=== PATIENT | female | born 1960 | race Caucasian/White ===

== ENCOUNTER 2022-09-01 15:50 | Observation (INO) | payer OTHER ==
[~2022-09-01] VITALS: Ht 170.2 cm; Wt 96.3 kg
[2022-09-01 16:27] LABS: Albumin 3.3 g/dL (3.4-5.0); Calcium 8.8 mg/dL (8.5-10.1); Magnesium 2.3 mg/dL (1.6-2.6); Potassium 3.9 mmol/L (3.5-5.1)
[2022-09-01 16:30] VITALS: PULSE 57; RESP 15; O2SAT 94
[2022-09-01 16:30] LABS: BUN/Creatinine Ratio 22.5 (10.0-20.0); Bilirubin, Total 0.4 mg/dL (0.2-1.0); Total Protein 7.2 g/dL (6.4-8.2)
[2022-09-01 16:37] LABS: Basophils # (auto) 0 10 ^3/uL (0-0.2); Basophils % (auto) 0.6 % (0.0-2.0); Eosinophils # (auto) 0.2 10 ^3/uL (0-0.8); Eosinophils % (auto) 2.5 % (0.0-7.0); Hematocrit 41.7 % (36.0-46.0); Hemoglobin 14.1 g/dL (12.2-16.2); Lymphocytes % (auto) 31.6 % (10.0-50.0); Mean Corpuscular Hemoglobin 31.1 pg (28.0-32.0); Mean Corpuscular Hgb Conc. 33.8 g/dL (32.0-36.0); Mean Corpuscular Volume 92.2 fL (80.0-100.0); Monocytes # (auto) 0.4 10 ^3/uL (0-1.3); Monocytes % (auto) 6.2 % (0.0-12.0); Neutrophils # (auto) 3.8 10 ^3/uL (1.6-8.6); Neutrophils % (auto) 59.1 % (37.0-80.0); Nucleated Red Blood Cells % 0.1 %; Red Blood Cells 4.53 10^6/uL (4.0-5.20); Red Cell Distribution Width 13.3 % (11.8-14.3); White Blood Cell 6.5 10^3/uL (4.4-10.8)
[2022-09-01 18:22] LABS: Urine Bacteria NONE SEEN /hpf (None Seen); Urine Blood Negative /uL (Negative); Urine Mucus FEW (None Seen); Urine Specific Gravity 1.031 (1.001-1.035); Urine WBC 5 /hpf (0 - 5)
[2022-09-01 20:00] VITALS: PULSE 63; RESP 16; O2SAT 93
[2022-09-01] MEDS ORDERED: SOD CHL 0.45% 1,000 ML IV ONE ×2 (20:45→22:45)
[2022-09-01 21:20] LABS: Alcohol, Urine < 3.0 mg/dL (0-10); Amphetamine Screen, Urine NEGATIVE (NEGATIVE); Barbiturate Scree,Urine NEGATIVE (NEGATIVE); Benzodiazephine Screen, Urine NEGATIVE (NEGATIVE); Cannabinoid Screen, Urine NEGATIVE (NEGATIVE); Cocaine Screen, Urine NEGATIVE (NEGATIVE); Opiate Scree,Urine NEGATIVE (NEGATIVE); Phencyclidine Screen, Urine NEGATIVE (NEGATIVE)
[2022-09-01] MEDS ORDERED: ASPirin 325 MG TAB PO ONE (22:00)
[2022-09-01] MEDS ORDERED: DexAMETHasone SOD PHOS 10MG/1ML VIAL INJ IV ONE (22:30)
[2022-09-01] MEDS ORDERED: NITROGLYCERIN 0.4 MG SL TAB SL PRN (22:30)
[2022-09-01] MEDS ORDERED: MORPHINE SULFATE INJ 2 MG/ml SYRG IV PRN (22:30)
[2022-09-02] MEDS ORDERED: ATROPINE SULF 1 MG/10ml SYR IV ONE (03:15)
[2022-09-02] MEDS: methylPREDNISolone SOD SUCC 125 MG/2 ML VL IV SCH ×3 (04:41→22:27)
[2022-09-02] MEDS ORDERED: ATROPINE SULF 0.5 MG/5ML SYR IV ONE (04:45)
[2022-09-02 05:48] LABS: Basophils # (auto) 0 10 ^3/uL (0-0.2); Basophils % (auto) 0.1 % (0.0-2.0); Eosinophils # (auto) 0 10 ^3/uL (0-0.8); Eosinophils % (auto) 0.1 % (0.0-7.0); Hematocrit 39.3 % (36.0-46.0); Hemoglobin 13.5 g/dL (12.2-16.2); Lymphocytes # (auto) 0.7 10 ^3/uL (0.4-5.4); Lymphocytes % (auto) 11.5 % (10.0-50.0); Mean Corpuscular Hemoglobin 31.9 pg (28.0-32.0); Mean Corpuscular Hgb Conc. 34.3 g/dL (32.0-36.0); Monocytes # (auto) 0.1 10 ^3/uL (0-1.3); Monocytes % (auto) 0.9 % (0.0-12.0); Neutrophils # (auto) 5.1 10 ^3/uL (1.6-8.6); Neutrophils % (auto) 87.4 % (37.0-80.0); Nucleated Red Blood Cells % 0.1 %; Red Blood Cells 4.23 10^6/uL (4.0-5.20); Red Cell Distribution Width 13.5 % (11.8-14.3); White Blood Cell 5.8 10^3/uL (4.4-10.8)
[2022-09-02 06:02] LABS: Albumin 3.2 g/dL (3.4-5.0); Calcium 8.7 mg/dL (8.5-10.1); Potassium 4.3 mmol/L (3.5-5.1)
[2022-09-02 06:05] LABS: BUN/Creatinine Ratio 22.2 (10.0-20.0); Bilirubin, Total 0.2 mg/dL (0.2-1.0); Total Protein 6.9 g/dL (6.4-8.2)
[2022-09-02] MEDS ORDERED: SOD CHL 0.45% 1,000 ML IV ONE (06:15)
[2022-09-02 07:51] LABS: Urine WBC None Seen /hpf (0 - 5)
[2022-09-02 08:17] VITALS: PULSE 45; RESP 18; O2SAT 95
[2022-09-02 08:23] LABS: Urine Bacteria FEW /hpf (None Seen); Urine Blood Negative /uL (Negative); Urine Specific Gravity 1.016 (1.001-1.035)
[2022-09-02] MEDS ORDERED: SODIUM CHLORIDE 0.9% 1,000 ML IV ONE ×2 (09:30)
[2022-09-02] MEDS: SODIUM CHLORIDE 0.9% 1,000 ML IV SCH ×2 (10:00→20:43)
[2022-09-02] MEDS: levoFLOXacin 500MG 100 ML IV SCH (11:25)
[2022-09-02] MEDS: MIDODRINE HCL 10 MG TAB PO SCH (15:38)
[2022-09-02] MEDS ORDERED: MIDODRINE HCL 10 MG TAB PO SCH (18:00)
[2022-09-02] MEDS ORDERED: NOREPINEPHRINE 8 MG/250ML KIT 250 ML IV SCH (18:00)
[2022-09-02 19:30] VITALS: PULSE 54; RESP 18; TEMP 98.8; O2SAT 93
[2022-09-03] MEDS: MIDODRINE HCL 10 MG TAB PO SCH (06:27)
[2022-09-03] MEDS: methylPREDNISolone SOD SUCC 125 MG/2 ML VL IV SCH (06:27)
[2022-09-03] MEDS: SODIUM CHLORIDE 0.9% 1,000 ML IV SCH ×2 (06:31→16:56)
[2022-09-03 08:00] VITALS: PULSE 43; RESP 18; O2SAT 93
[2022-09-03] MEDS: levoFLOXacin 500MG 100 ML IV SCH (10:05)
[2022-09-03] MEDS ORDERED: MIDO10TA3 PO (10:33)
[2022-09-03 16:58] VITALS: BP 129/77; PULSE 48; RESP 20; O2SAT 95
== END 2022-09-03 17:03 | disposition home or self-care (01) ==
LOC: ER 15:50 → TELE 22:38 → UNDODEPER 09-03 16:37 → TELE 09-03 17:03
PROVIDERS: ADMIT Internal Medicine; ATTEND Internal Medicine
DX: R55 Syncope and collapse (principal); S09.90XA Unspecified injury of head, initial encounter; R07.89 Other chest pain; E27.1 Primary adrenocortical insufficiency; N39.0 Urinary tract infection, site not specified; I48.91 Unspecified atrial fibrillation; R00.2 Palpitations; E78.5 Hyperlipidemia, unspecified; I49.8 Other specified cardiac arrhythmias; I51.7 Cardiomegaly; W19.XXXA Unspecified fall, initial encounter; Y93.89 Activity, other specified; Y92.89 Other specified places as the place of occurrence of the external cause; Y99.8 Other external cause status
CPT/HCPCS: 36415; 70450; 71045; 72125; 73562; 80053; 80307; 81001; 82550; 82962; 83605; 83735; 83880; 84443; 84484; 85025; 85379; 93005; 93306; 96361; 96365; 96366; 96367; 96375; 96376; 99285; G0378; J1100; J1956; J2930

== ENCOUNTER 2022-10-25 11:39 | Inpatient (IN) | payer MEDICARE, MEDICAID ==
[~2022-10-25] VITALS: Ht 170.2 cm; Wt 96.0 kg
[2022-10-25] VITALS (38 sets, daily range): BP systolic 84–105; BP diastolic 44–63; PULSE 46–74; RESP 12–24; TEMP 97.6–97.7; O2SAT 94–99
[~2022-10-25 11:39] MED LIST: MIDO10TA3 PO
[2022-10-25] MEDS ORDERED: DexAMETHasone SOD PHOS 10MG/1ML VIAL INJ IV ONE (11:45)
[2022-10-25] MEDS ORDERED: EPINEPHrine HCL 1 MG/1 ML AMP SC ONE (11:45)
[2022-10-25] MEDS ORDERED: DexAMETHasone SOD PHOS 4 MG/1ML SDV INJ ONE ×2 (11:53→11:57)
[2022-10-25] MEDS ORDERED: ETOMIDATE (2MG/ML) 20ML VIAL IV ONE ×2 (11:55→12:00)
[2022-10-25] MEDS ORDERED: MIDAZOLAM DRIP 50 mg/50mL 50 ML IV ONE (11:55)
[2022-10-25] MEDS ORDERED: MIDAZOLAM HCL 5 MG/ML-1ML VIAL ONE (11:55)
[2022-10-25] MEDS ORDERED: SUCCINYLCHOLINE CHLORIDE 20 MG/ML 10ML VIAL IV ONE ×2 (11:56→12:00)
[2022-10-25] MEDS ORDERED: MIDAZOLAM DRIP 50 mg/50mL 50 ML IV SCH (12:00)
[2022-10-25] MEDS ORDERED: MIDAZOLAM HCL 5 MG/ML-1ML VIAL IV ONE (12:00)
[2022-10-25] MEDS: MIDAZOLAM DRIP 50 mg/50mL 50 ML IV SCH ×3 (12:01→23:32)
[2022-10-25] MEDS ORDERED: fentaNYL Drip 2500mCg/250mlNS 250 ML IV ONE (12:20)
[2022-10-25] MEDS: fentaNYL Drip 2500mCg/250mlNS 250 ML IV SCH (12:25)
[2022-10-25 12:33] LABS: Basophils # (auto) 0.1 10 ^3/uL (0-0.2); Basophils % (auto) 0.5 % (0.0-2.0); Eosinophils # (auto) 0.1 10 ^3/uL (0-0.8); Eosinophils % (auto) 1.5 % (0.0-7.0); Hematocrit 42.2 % (36.0-46.0); Hemoglobin 14.2 g/dL (12.2-16.2); Lymphocytes # (auto) 3.1 10 ^3/uL (0.4-5.4); Lymphocytes % (auto) 30.4 % (10.0-50.0); Mean Corpuscular Hemoglobin 31.4 pg (28.0-32.0); Mean Corpuscular Hgb Conc. 33.7 g/dL (32.0-36.0); Mean Corpuscular Volume 93.3 fL (80.0-100.0); Monocytes # (auto) 0.6 10 ^3/uL (0-1.3); Monocytes % (auto) 6.3 % (0.0-12.0); Neutrophils # (auto) 6.2 10 ^3/uL (1.6-8.6); Neutrophils % (auto) 61.3 % (37.0-80.0); Nucleated Red Blood Cells % 0.1 %; Red Blood Cells 4.52 10^6/uL (4.0-5.20); Red Cell Distribution Width 13.6 % (11.8-14.3); White Blood Cell 10.1 10^3/uL (4.4-10.8)
[2022-10-25 12:39] LABS: Albumin 3.5 g/dL (3.4-5.0); Calcium 8.7 mg/dL (8.5-10.1); Potassium 4.1 mmol/L (3.5-5.1)
[2022-10-25 12:47] LABS: Bilirubin, Total 0.3 mg/dL (0.2-1.0); Total Protein 7.1 g/dL (6.4-8.2)
[2022-10-25 12:58] LABS: Partial Thromboplastin Time 25.7 SEC (24.5-34.5); Prothrombin Time 10.5 sec (9.3-11.8)
[2022-10-25] MEDS ORDERED: IOHEXOL 350 MG/ML 100ML IJ ONE (13:06)
[2022-10-25 13:40] LABS: Base Excess -3.9 mmol/L (-2.0-2.0)
[2022-10-25] MEDS ORDERED: NITROGLYCERIN 0.4 MG SL TAB SL PRN (15:00)
[2022-10-25] MEDS ORDERED: PANTOPRAZOLE 40 MG/10 ML VIAL INJ IV ONE (15:15)
[2022-10-25] MEDS: SODIUM CHLORIDE 0.9% 1,000 ML IV SCH (15:19)
[2022-10-25 16:16] LABS: Cholesterol 255 mg/dL (< 200); HDL Cholesterol 58 mg/dL (40-59); LDL Cholesterol 164 mg/dL (< 100); Triglycerides 99 mg/dL (< 150)
[2022-10-25] MEDS: NOREPINEPHRINE 8 MG/250ML KIT 250 ML IV SCH (16:51)
[2022-10-25] MEDS: HYDROCORTISONE SOD SUCC 100 MG/2ML INJ VIAL IV SCH ×2 (18:45→23:32)
[2022-10-25] MEDS: IPRATROPIUM BROM 0.5 MG/2.5ML INH SOL NEB SCH ×2 (19:00→22:24)
[2022-10-25] MEDS: ALBUTEROL SULF 2.5 MG/0.5ML(0.5%) NEB SOLN NEB SCH ×2 (19:00→22:24)
[2022-10-26] VITALS (111 sets, daily range): BP systolic 87–118; BP diastolic 46–65; PULSE 61–104; RESP 12–21; TEMP 97.8–98.5; O2SAT 92–98
[2022-10-26] MEDS: ALBUTEROL SULF 2.5 MG/0.5ML(0.5%) NEB SOLN NEB SCH ×6 (02:26→22:19)
[2022-10-26] MEDS: IPRATROPIUM BROM 0.5 MG/2.5ML INH SOL NEB SCH ×6 (02:26→22:20)
[2022-10-26 04:15] LABS: Basophils # (auto) 0 10 ^3/uL (0-0.2); Basophils % (auto) 0.2 % (0.0-2.0); Eosinophils # (auto) 0 10 ^3/uL (0-0.8); Hematocrit 41.6 % (36.0-46.0); Hemoglobin 13.5 g/dL (12.2-16.2); Lymphocytes # (auto) 0.7 10 ^3/uL (0.4-5.4); Lymphocytes % (auto) 4.6 % (10.0-50.0); Mean Corpuscular Hemoglobin 31.4 pg (28.0-32.0); Mean Corpuscular Hgb Conc. 32.6 g/dL (32.0-36.0); Mean Corpuscular Volume 96.4 fL (80.0-100.0); Monocytes # (auto) 0.2 10 ^3/uL (0-1.3); Monocytes % (auto) 1.3 % (0.0-12.0); Neutrophils # (auto) 13.8 10 ^3/uL (1.6-8.6); Neutrophils % (auto) 93.9 % (37.0-80.0); Red Blood Cells 4.32 10^6/uL (4.0-5.20); Red Cell Distribution Width 14.4 % (11.8-14.3); White Blood Cell 14.7 10^3/uL (4.4-10.8)
[2022-10-26 04:26] LABS: Urine Bacteria NONE SEEN /hpf (None Seen); Urine Blood Negative /uL (Negative); Urine Clarity Clear (Clear); Urine Color Yellow (Yellow); Urine Hyaline Cast FEW /lpf (0 - 2); Urine Mucus FEW (None Seen); Urine Protein, UAD TRACE (Negative); Urine Urobilinogen Normal (Negative); Urine WBC 2 /hpf (0 - 5); Urine pH 5.5 (5.0-8.0)
[2022-10-26] MEDS: MIDAZOLAM DRIP 50 mg/50mL 50 ML IV SCH ×5 (04:26→22:53)
[2022-10-26] MEDS: SODIUM CHLORIDE 0.9% 1,000 ML IV SCH ×2 (04:27→18:38)
[2022-10-26 04:31] LABS: Potassium 4.4 mmol/L (3.5-5.1)
[2022-10-26 04:38] LABS: BUN/Creatinine Ratio 16.5 (10.0-20.0); Bilirubin, Total 0.2 mg/dL (0.2-1.0); Calcium 8.6 mg/dL (8.5-10.1)
[2022-10-26] MEDS: HYDROCORTISONE SOD SUCC 100 MG/2ML INJ VIAL IV SCH ×3 (06:06→18:38)
[2022-10-26 06:09] LABS: Base Excess -9.9 mmol/L (-2.0-2.0)
[2022-10-26] MEDS: fentaNYL Drip 2500mCg/250mlNS 250 ML IV SCH ×2 (06:12→23:28)
[2022-10-26] MEDS ORDERED: SODIUM BICARBONATE 8.4 % INJ 50ML VIAL IV ONE (06:45)
[2022-10-26] MEDS ORDERED: SODIUM BICARBONATE 8.4% INJ 50ML SYRINGE IV ONE (07:30)
[2022-10-26] MEDS: PANTOPRAZOLE 40 MG/10 ML VIAL INJ IV SCH (09:19)
[2022-10-26] MEDS ORDERED: ATO40T PO (11:37)
[2022-10-26] MEDS ORDERED: TRAZ-181 PO (11:37)
[2022-10-26] MEDS ORDERED: PROM12.57 PO (11:37)
[2022-10-26] MEDS: NOREPINEPHRINE 8 MG/250ML KIT 250 ML IV SCH (15:00)
[2022-10-26] MEDS ORDERED: MIDODRINE HCL 10 MG TAB PO ONE (16:00)
[2022-10-26 16:28] LABS: Base Excess -7.5 mmol/L (-2.0-2.0)
[2022-10-26] MEDS ORDERED: NITROGLYCERIN 2% OINT 1GM PKG TD ONE (19:00)
[2022-10-27] VITALS (110 sets, daily range): BP systolic 89–189; BP diastolic 48–99; PULSE 47–98; RESP 19–26; TEMP 97.6–98.6; O2SAT 92–99
[2022-10-27] MEDS: HYDROCORTISONE SOD SUCC 100 MG/2ML INJ VIAL IV SCH ×4 (00:02→17:57)
[2022-10-27] MEDS: IPRATROPIUM BROM 0.5 MG/2.5ML INH SOL NEB SCH ×7 (02:21→22:02)
[2022-10-27] MEDS: ALBUTEROL SULF 2.5 MG/0.5ML(0.5%) NEB SOLN NEB SCH ×7 (02:21→22:02)
[2022-10-27] MEDS: MIDAZOLAM DRIP 50 mg/50mL 50 ML IV SCH ×3 (04:06→15:33)
[2022-10-27 05:04] LABS: Basophils # (auto) 0 10 ^3/uL (0-0.2); Basophils % (auto) 0.1 % (0.0-2.0); Eosinophils # (auto) 0 10 ^3/uL (0-0.8); Hematocrit 31.3 % (36.0-46.0); Hemoglobin 10.6 g/dL (12.2-16.2); Lymphocytes # (auto) 0.9 10 ^3/uL (0.4-5.4); Lymphocytes % (auto) 5.6 % (10.0-50.0); Mean Corpuscular Hemoglobin 31.6 pg (28.0-32.0); Mean Corpuscular Hgb Conc. 33.9 g/dL (32.0-36.0); Monocytes # (auto) 0.8 10 ^3/uL (0-1.3); Monocytes % (auto) 5.1 % (0.0-12.0); Neutrophils # (auto) 13.8 10 ^3/uL (1.6-8.6); Neutrophils % (auto) 89.2 % (37.0-80.0); Nucleated Red Blood Cells % 0.1 %; Red Blood Cells 3.36 10^6/uL (4.0-5.20); Red Cell Distribution Width 13.7 % (11.8-14.3); White Blood Cell 15.5 10^3/uL (4.4-10.8)
[2022-10-27 05:24] LABS: Calcium 8.2 mg/dL (8.5-10.1); Potassium 4.5 mmol/L (3.5-5.1)
[2022-10-27 05:31] LABS: Albumin 2.8 g/dL (3.4-5.0); BUN/Creatinine Ratio 31.2 (10.0-20.0); Bilirubin, Total 0.2 mg/dL (0.2-1.0); Total Protein 6.1 g/dL (6.4-8.2)
[2022-10-27] MEDS: MIDODRINE HCL 10 MG TAB PO SCH ×3 (05:58→17:57)
[2022-10-27] MEDS ORDERED: dilTIAZem 25 MG/5 ML VIAL IV ONE (06:45)
[2022-10-27 07:21] LABS: Base Excess -2.5 mmol/L (-2.0-2.0)
[2022-10-27] MEDS: SODIUM CHLORIDE 0.9% 1,000 ML IV SCH (09:15)
[2022-10-27] MEDS: PANTOPRAZOLE 40 MG/10 ML VIAL INJ IV SCH (09:42)
[2022-10-27] MEDS: ENOXAPARIN SOD 40 MG/0.4 ML SYRINGE SC SCH (09:42)
[2022-10-27] MEDS: NOREPINEPHRINE 8 MG/250ML KIT 250 ML IV SCH (15:00)
[2022-10-28] VITALS (113 sets, daily range): BP systolic 124–170; BP diastolic 65–104; PULSE 47–92; RESP 8–30; TEMP 97.2–98.9; O2SAT 86–100
[2022-10-28] MEDS: HYDROCORTISONE SOD SUCC 100 MG/2ML INJ VIAL IV SCH ×4 (00:52→22:33)
[2022-10-28] MEDS: SODIUM CHLORIDE 0.9% 1,000 ML IV SCH ×2 (00:52→09:40)
[2022-10-28] MEDS: IPRATROPIUM BROM 0.5 MG/2.5ML INH SOL NEB SCH ×5 (02:32→22:26)
[2022-10-28] MEDS: ALBUTEROL SULF 2.5 MG/0.5ML(0.5%) NEB SOLN NEB SCH ×5 (02:32→22:26)
[2022-10-28] MEDS: fentaNYL Drip 2500mCg/250mlNS 250 ML IV SCH (03:08)
[2022-10-28 04:09] LABS: Basophils # (auto) 0 10 ^3/uL (0-0.2); Basophils % (auto) 0.1 % (0.0-2.0); Eosinophils # (auto) 0 10 ^3/uL (0-0.8); Hematocrit 34.6 % (36.0-46.0); Hemoglobin 11.7 g/dL (12.2-16.2); Lymphocytes % (auto) 8.6 % (10.0-50.0); Mean Corpuscular Hemoglobin 31.7 pg (28.0-32.0); Mean Corpuscular Hgb Conc. 33.8 g/dL (32.0-36.0); Mean Corpuscular Volume 93.6 fL (80.0-100.0); Monocytes # (auto) 0.6 10 ^3/uL (0-1.3); Monocytes % (auto) 5.2 % (0.0-12.0); Neutrophils # (auto) 10.2 10 ^3/uL (1.6-8.6); Neutrophils % (auto) 86.1 % (37.0-80.0); Red Cell Distribution Width 14.2 % (11.8-14.3); White Blood Cell 11.8 10^3/uL (4.4-10.8)
[2022-10-28 04:29] LABS: Calcium 8.5 mg/dL (8.5-10.1); Potassium 3.8 mmol/L (3.5-5.1)
[2022-10-28 04:32] LABS: BUN/Creatinine Ratio 29.2 (10.0-20.0)
[2022-10-28] MEDS: MIDODRINE HCL 10 MG TAB PO SCH ×3 (05:48→17:43)
[2022-10-28] MEDS: PANTOPRAZOLE 40 MG/10 ML VIAL INJ IV SCH (09:49)
[2022-10-28] MEDS: ENOXAPARIN SOD 40 MG/0.4 ML SYRINGE SC SCH (09:49)
[2022-10-28 09:59] LABS: Base Excess 1.1 mmol/L (-2.0-2.0)
[2022-10-28] MEDS ORDERED: FUROSEMIDE 20 MG/2 ML VIAL ONE (10:39)
[2022-10-28] MEDS ORDERED: FUROSEMIDE 20 MG/2 ML VIAL IV ONE (10:45)
[2022-10-28] MEDS ORDERED: HYDR5TAB PO (12:08)
[2022-10-28] MEDS ORDERED: DOCU-94 PO (12:08)
[2022-10-28] MEDS ORDERED: FAMO-12 PO (12:08)
[2022-10-28] MEDS: MORPHINE SULFATE INJ 2 MG/ml SYRG IV PRN (20:40)
[2022-10-29] VITALS (35 sets, daily range): BP systolic 113–155; BP diastolic 56–90; PULSE 47–87; RESP 14–25; TEMP 98.2–98.6; O2SAT 91–100
[2022-10-29] MEDS: IPRATROPIUM BROM 0.5 MG/2.5ML INH SOL NEB SCH ×6 (02:52→22:02)
[2022-10-29] MEDS: ALBUTEROL SULF 2.5 MG/0.5ML(0.5%) NEB SOLN NEB SCH ×6 (02:53→22:02)
[2022-10-29 04:53] LABS: Basophils # (auto) 0 10 ^3/uL (0-0.2); Basophils % (auto) 0.3 % (0.0-2.0); Eosinophils # (auto) 0 10 ^3/uL (0-0.8); Eosinophils % (auto) 0.1 % (0.0-7.0); Hemoglobin 10.7 g/dL (12.2-16.2); Lymphocytes # (auto) 1.5 10 ^3/uL (0.4-5.4); Lymphocytes % (auto) 16.7 % (10.0-50.0); Mean Corpuscular Hemoglobin 31.9 pg (28.0-32.0); Mean Corpuscular Hgb Conc. 34.7 g/dL (32.0-36.0); Mean Corpuscular Volume 91.9 fL (80.0-100.0); Monocytes # (auto) 0.5 10 ^3/uL (0-1.3); Monocytes % (auto) 5.1 % (0.0-12.0); Neutrophils # (auto) 6.9 10 ^3/uL (1.6-8.6); Neutrophils % (auto) 77.8 % (37.0-80.0); Red Blood Cells 3.37 10^6/uL (4.0-5.20); White Blood Cell 8.9 10^3/uL (4.4-10.8)
[2022-10-29 05:08] LABS: Calcium 8.5 mg/dL (8.5-10.1); Potassium 3.2 mmol/L (3.5-5.1)
[2022-10-29] MEDS: MIDODRINE HCL 10 MG TAB PO SCH ×3 (05:30→17:30)
[2022-10-29] MEDS: HYDROCORTISONE SOD SUCC 100 MG/2ML INJ VIAL IV SCH ×3 (05:30→21:31)
[2022-10-29] MEDS: ENOXAPARIN SOD 40 MG/0.4 ML SYRINGE SC SCH (10:18)
[2022-10-29] MEDS: PANTOPRAZOLE 40 MG/10 ML VIAL INJ IV SCH (10:18)
[2022-10-29] MEDS: MIDAZOLAM DRIP 50 mg/50mL 50 ML IV SCH (12:15)
[2022-10-29] MEDS: fentaNYL Drip 2500mCg/250mlNS 250 ML IV SCH (12:30)
[2022-10-30] VITALS (64 sets, daily range): BP systolic 76–165; BP diastolic 41–109; PULSE 45–157; RESP 12–29; TEMP 98.3–98.6; O2SAT 90–98
[2022-10-30] MEDS: LORazepam 2MG/ML-1ML VIAL IV PRN (00:38)
[2022-10-30] MEDS ORDERED: dilTIAZem 25 MG/5 ML VIAL IV ONE ×2 (00:45)
[2022-10-30] MEDS ORDERED: POTASSIUM CHL 20MEQ/100ML 100 ML IV ONE ×3 (00:45→02:45)
[2022-10-30] MEDS ORDERED: dilTIAZem 125mg/125ml BAG KIT 125 ML IV SCH (01:00)
[2022-10-30 01:16] LABS: BUN/Creatinine Ratio 26.2 (10.0-20.0); Calcium 8.5 mg/dL (8.5-10.1); Magnesium 2.5 mg/dL (1.6-2.6); Potassium 3.1 mmol/L (3.5-5.1)
[2022-10-30] MEDS: ALBUTEROL SULF 2.5 MG/0.5ML(0.5%) NEB SOLN NEB SCH ×6 (01:57→22:51)
[2022-10-30] MEDS: IPRATROPIUM BROM 0.5 MG/2.5ML INH SOL NEB SCH ×6 (01:57→22:51)
[2022-10-30] MEDS ORDERED: AMIODARONE BOLUS KIT 100 ML IV ONE (03:00)
[2022-10-30] MEDS ORDERED: AMIODARONE 450mg/250ml AE 250 ML IV SCH ×2 (03:15→09:15)
[2022-10-30] MEDS: HYDROCORTISONE SOD SUCC 100 MG/2ML INJ VIAL IV SCH ×3 (05:48→21:03)
[2022-10-30] MEDS: MIDODRINE HCL 10 MG TAB PO SCH ×3 (05:48→17:41)
[2022-10-30] MEDS: PANTOPRAZOLE 40 MG/10 ML VIAL INJ IV SCH (09:09)
[2022-10-30] MEDS: ENOXAPARIN SOD 40 MG/0.4 ML SYRINGE SC SCH (09:10)
[2022-10-30] MEDS: ASPirin 81 mg TAB PO SCH (09:10)
[2022-10-30] MEDS ORDERED: FUROSEMIDE 20 MG/2 ML VIAL IV ONE (12:15)
[2022-10-30] MEDS ORDERED: POTASSIUM CHL 20 Meq TABLET PO ONE (12:15)
[2022-10-30] MEDS ORDERED: ONDANSETRON HCL 4 MG/2 ML VIAL IV PRN (14:00)
[2022-10-30] MEDS ORDERED: LACTULOSE 20Gm/30ML SOLN PO PRN (15:00)
[2022-10-30] MEDS ORDERED: POTASSIUM EFFERVESENT TAB 25 MEQ PO ONE (15:15)
[2022-10-30] MEDS: ATORVASTATIN 20 MG TAB PO SCH (21:03)
[2022-10-30] MEDS: APIXABAN 5 MG TAB PO SCH (21:03)
[2022-10-30] MEDS ORDERED: DOCUSATE ORAL LIQUID 100 MG/10 ML UD PO PRN (22:00)
[2022-10-31] VITALS (47 sets, daily range): BP systolic 80–160; BP diastolic 52–80; PULSE 40–78; RESP 11–23; TEMP 97.9–98.1; O2SAT 92–100
[2022-10-31] MEDS: IPRATROPIUM BROM 0.5 MG/2.5ML INH SOL NEB SCH ×6 (02:31→22:20)
[2022-10-31] MEDS: ALBUTEROL SULF 2.5 MG/0.5ML(0.5%) NEB SOLN NEB SCH ×6 (02:32→22:20)
[2022-10-31 04:24] LABS: Potassium 3.9 mmol/L (3.5-5.1)
[2022-10-31 04:31] LABS: BUN/Creatinine Ratio 34.3 (10.0-20.0); Calcium 8.4 mg/dL (8.5-10.1)
[2022-10-31] MEDS: MIDODRINE HCL 10 MG TAB PO SCH ×3 (06:00→17:31)
[2022-10-31] MEDS: HYDROCORTISONE SOD SUCC 100 MG/2ML INJ VIAL IV SCH (06:07)
[2022-10-31] MEDS: ASPirin 81 mg TAB PO SCH (10:02)
[2022-10-31] MEDS: APIXABAN 5 MG TAB PO SCH ×2 (10:02→21:57)
[2022-10-31] MEDS: PANTOPRAZOLE 40 MG/10 ML VIAL INJ IV SCH (10:03)
[2022-10-31] MEDS: HYDROCORTISONE 10 MG TAB PO SCH (17:30)
[2022-10-31] MEDS: LORazepam 2MG/ML-1ML VIAL IV PRN (21:57)
[2022-10-31] MEDS: ATORVASTATIN 20 MG TAB PO SCH (21:58)
[2022-11-01] VITALS (83 sets, daily range): BP systolic 83–173; BP diastolic 50–88; PULSE 44–148; RESP 8–31; TEMP 97.9–98.8; O2SAT 88–100
[2022-11-01] MEDS: ALBUTEROL SULF 2.5 MG/0.5ML(0.5%) NEB SOLN NEB SCH ×6 (01:51→22:31)
[2022-11-01] MEDS: IPRATROPIUM BROM 0.5 MG/2.5ML INH SOL NEB SCH ×6 (01:51→22:31)
[2022-11-01] MEDS: MORPHINE SULFATE INJ 2 MG/ml SYRG IV PRN ×2 (02:36→03:01)
[2022-11-01] MEDS ORDERED: DIGOXIN (250MCG/ML) 2 ML AMPULE ONE (02:57)
[2022-11-01] MEDS ORDERED: DIGOXIN (250MCG/ML) 2 ML AMPULE IV ONE ×2 (03:00→03:31)
[2022-11-01] MEDS: LORazepam 2MG/ML-1ML VIAL IV PRN (03:39)
[2022-11-01 04:43] LABS: Basophils # (auto) 0 10 ^3/uL (0-0.2); Basophils % (auto) 0.2 % (0.0-2.0); Eosinophils # (auto) 0.2 10 ^3/uL (0-0.8); Eosinophils % (auto) 2.3 % (0.0-7.0); Lymphocytes # (auto) 2.4 10 ^3/uL (0.4-5.4); Lymphocytes % (auto) 30.2 % (10.0-50.0); Mean Corpuscular Hemoglobin 31.6 pg (28.0-32.0); Mean Corpuscular Hgb Conc. 34.2 g/dL (32.0-36.0); Mean Corpuscular Volume 92.5 fL (80.0-100.0); Monocytes # (auto) 0.6 10 ^3/uL (0-1.3); Monocytes % (auto) 7.6 % (0.0-12.0); Neutrophils # (auto) 4.7 10 ^3/uL (1.6-8.6); Neutrophils % (auto) 59.7 % (37.0-80.0); Red Blood Cells 3.79 10^6/uL (4.0-5.20); Red Cell Distribution Width 13.7 % (11.8-14.3); White Blood Cell 7.9 10^3/uL (4.4-10.8)
[2022-11-01 04:51] LABS: Calcium 8.4 mg/dL (8.7-10.4); Potassium 3.5 mmol/L (3.5-5.1)
[2022-11-01] MEDS: HYDROCORTISONE 10 MG TAB PO SCH ×2 (06:23→18:37)
[2022-11-01] MEDS: MIDODRINE HCL 10 MG TAB PO SCH ×3 (06:23→18:32)
[2022-11-01] MEDS ORDERED: AMIODARONE BOLUS KIT 100 ML IV ONE (06:45)
[2022-11-01] MEDS ORDERED: METOPROLOL TARTRATE 1MG/1ML-5ML VIAL IV ONE (06:45)
[2022-11-01] MEDS ORDERED: AMIODARONE 450mg/250ml AE 250 ML IV SCH (07:00)
[2022-11-01] MEDS: POTASSIUM CHL 20MEQ/100ML 100 ML IV SCH ×2 (08:20→12:10)
[2022-11-01] MEDS: APIXABAN 5 MG TAB PO SCH ×2 (10:06→21:47)
[2022-11-01] MEDS: AMIODARONE 450mg/250ml AE 250 ML IV SCH ×2 (13:00→13:40)
[2022-11-01] MEDS: ATORVASTATIN 20 MG TAB PO SCH (21:48)
[2022-11-02] VITALS (48 sets, daily range): BP systolic 117–167; BP diastolic 43–81; PULSE 46–73; RESP 10–29; TEMP 97.8–99.1; O2SAT 89–100
[2022-11-02] MEDS: ALBUTEROL SULF 2.5 MG/0.5ML(0.5%) NEB SOLN NEB SCH ×6 (02:08→21:17)
[2022-11-02] MEDS: IPRATROPIUM BROM 0.5 MG/2.5ML INH SOL NEB SCH ×6 (02:08→21:17)
[2022-11-02] MEDS: AMIODARONE 450mg/250ml AE 250 ML IV SCH (04:00)
[2022-11-02 04:22] LABS: Basophils # (auto) 0 10 ^3/uL (0-0.2); Basophils % (auto) 0.4 % (0.0-2.0); Eosinophils # (auto) 0.2 10 ^3/uL (0-0.8); Eosinophils % (auto) 2.4 % (0.0-7.0); Hematocrit 33.5 % (36.0-46.0); Hemoglobin 11.3 g/dL (12.2-16.2); Lymphocytes # (auto) 2.4 10 ^3/uL (0.4-5.4); Lymphocytes % (auto) 28.9 % (10.0-50.0); Mean Corpuscular Hemoglobin 31.5 pg (28.0-32.0); Mean Corpuscular Hgb Conc. 33.9 g/dL (32.0-36.0); Mean Corpuscular Volume 92.9 fL (80.0-100.0); Monocytes # (auto) 0.6 10 ^3/uL (0-1.3); Monocytes % (auto) 7.8 % (0.0-12.0); Neutrophils % (auto) 60.5 % (37.0-80.0); Nucleated Red Blood Cells % 0.1 %; Red Cell Distribution Width 13.8 % (11.8-14.3); White Blood Cell 8.3 10^3/uL (4.4-10.8)
[2022-11-02 04:40] LABS: Chloride 105 mmol/L (98-107); Sodium 139 mmol/L (136-145)
[2022-11-02 04:41] LABS: Anion Gap 9.2 (5-15); Carbon Dioxide 24.8 mmol/L (20-30)
[2022-11-02 04:42] LABS: Calcium 8.8 mg/dL (8.7-10.4)
[2022-11-02 04:47] LABS: BUN/Creatinine Ratio 27.5 (10.0-20.0); Blood Urea Nitrogen 19 mg/dL (9-23); Glucose 97 mg/dL (74-106)
[2022-11-02] MEDS: MIDODRINE HCL 10 MG TAB PO SCH ×3 (06:19→18:00)
[2022-11-02] MEDS: HYDROCORTISONE 10 MG TAB PO SCH ×2 (07:12→18:38)
[2022-11-02] MEDS: APIXABAN 5 MG TAB PO SCH ×2 (11:37→22:02)
[2022-11-02] MEDS: MORPHINE SULFATE INJ 2 MG/ml SYRG IV PRN (16:24)
[2022-11-02] MEDS ORDERED: NITROGLYCERIN 2% OINT 1GM PKG TD ONE (16:30)
[2022-11-02] MEDS: AMIODARONE HCL 200 MG TAB PO SCH (22:02)
[2022-11-02] MEDS: ATORVASTATIN 20 MG TAB PO SCH (22:02)
[2022-11-03] VITALS (11 sets, daily range): BP systolic 118–137; BP diastolic 64–72; PULSE 45–70; RESP 16–20; TEMP 98–98.2; O2SAT 94–99
[2022-11-03] MEDS: IPRATROPIUM BROM 0.5 MG/2.5ML INH SOL NEB SCH ×6 (01:51→18:45)
[2022-11-03] MEDS: ALBUTEROL SULF 2.5 MG/0.5ML(0.5%) NEB SOLN NEB SCH ×6 (01:52→18:45)
[2022-11-03] MEDS: MORPHINE SULFATE INJ 2 MG/ml SYRG IV PRN (03:03)
[2022-11-03] MEDS: MIDODRINE HCL 10 MG TAB PO SCH ×3 (06:27→18:18)
[2022-11-03] MEDS: HYDROCORTISONE 10 MG TAB PO SCH ×2 (06:28→18:18)
[2022-11-03] MEDS: APIXABAN 5 MG TAB PO SCH (10:43)
[2022-11-03] MEDS: AMIODARONE HCL 200 MG TAB PO SCH (10:43)
== END 2022-11-03 19:03 | DRG 208 ==
LOC: ER 11:39 → EDBD 11:39 → TELE 14:50 → ICU WEST 15:56 → TELE-WESTW 11-02 08:57
PROVIDERS: ADMIT Nurse Practitioner Family; ATTEND Internal Medicine
PROC: 5A1945Z Respiratory Ventilation, 24-96 Consecutive Hours (ICD-10-PCS; principal; 2022-10-25)
PROC: 0BH17EZ Insertion of Endotracheal Airway into Trachea, Via Natural or Artificial Opening (ICD-10-PCS; 2022-10-25)
PROC: 02H633Z Insertion of Infusion Device into Right Atrium, Percutaneous Approach (ICD-10-PCS; 2022-10-26)
PROC: B548ZZA Ultrasonography of Superior Vena Cava, Guidance (ICD-10-PCS; 2022-10-26)
PROC: 30233L1 Transfusion of Nonautologous Fresh Plasma into Peripheral Vein, Percutaneous Approach (ICD-10-PCS; 2022-10-26)
DX: J96.01 Acute respiratory failure with hypoxia (principal); E27.1 Primary adrenocortical insufficiency; J98.11 Atelectasis; D68.69 Other thrombophilia; D84.1 Defects in the complement system; I95.9 Hypotension, unspecified; E66.01 Morbid (severe) obesity due to excess calories; I48.0 Paroxysmal atrial fibrillation; Z68.34 Body mass index [BMI] 34.0-34.9, adult; Z86.718 Personal history of other venous thrombosis and embolism; Z90.49 Acquired absence of other specified parts of digestive tract; Z98.51 Tubal ligation status; Z93.0 Tracheostomy status
CPT/HCPCS: 31500; 36415; 36600; 70491; 71045; 80048; 80053; 80061; 81001; 82805; 83036; 83735; 83880; 84132; 84443; 84484; 85025; 85379; 85610; 85730; 86850; 86870; 86900; 86901; 87070; 87081; 87205; 92610; 93005; 94002; 94003; 94640; 96365; 96372; 96375; 97110; 97116; 97163; 99291; C9113; G0378; J0171; J0330; J1100; J2250; J3480

== ENCOUNTER 2024-08-01 13:20 | Emergency (ER) | payer MEDICAID, MEDICARE, OTHER ==
[~2024-08-01] VITALS: Ht 170.2 cm; Wt 95.9 kg
[~2024-08-01 13:20] MED LIST changes: +ATOR-507 PO; +DOCU-94 PO; +FAMO-12 PO; +HYDR5TAB PO; +PROM12.57 PO; +TRAZ-181 PO
[2024-08-01 14:22] LABS: Basophils # (auto) 0 10 ^3/uL (0-0.2); Basophils % (auto) 0.3 % (0.0-2.0); Eosinophils # (auto) 0.1 10 ^3/uL (0-0.8); Eosinophils % (auto) 0.9 % (0.0-7.0); Hematocrit 44.8 % (36.0-46.0); Hemoglobin 15.3 g/dL (12.2-16.2); Lymphocytes # (auto) 1.7 10 ^3/uL (0.4-5.4); Lymphocytes % (auto) 26.6 % (10.0-50.0); Mean Corpuscular Hemoglobin 31.6 pg (28.0-32.0); Mean Corpuscular Hgb Conc. 34.1 g/dL (32.0-36.0); Mean Corpuscular Volume 92.6 fL (80.0-100.0); Monocytes # (auto) 0.4 10 ^3/uL (0-1.3); Monocytes % (auto) 6.3 % (0.0-12.0); Neutrophils # (auto) 4.2 10 ^3/uL (1.6-8.6); Neutrophils % (auto) 65.9 % (37.0-80.0); Nucleated Red Blood Cells % 0.1 %; Platelet Count (auto) 261 10^3/uL (140-450); Red Blood Cells 4.84 10^6/uL (4.0-5.20); Red Cell Distribution Width 13.7 % (11.8-14.3); White Blood Cell 6.4 10^3/uL (4.4-10.8)
[2024-08-01 14:23] LABS: Urine Amorphous Crystal FEW /hpf (None Seen); Urine Bacteria FEW /hpf (None Seen); Urine Blood TRACE /uL (Negative); Urine Clarity Ex.Turbid (Clear); Urine Color Light-Orange (Yellow); Urine Mucus MODERATE (None Seen); Urine Protein, UAD TRACE (Negative); Urine Specific Gravity 1.031 (1.001-1.035); Urine Squamous Epithelial Cell FEW /hpf (<5); Urine Urobilinogen Normal (Negative); Urine WBC 4 /HPF (0-5)
[2024-08-01 14:33] VITALS: PULSE 81; RESP 20; O2SAT 98
[2024-08-01] MEDS: ONDANSETRON HCL 4 MG/2 ML VIAL IV ONE (14:33)
--- NOTE | 2024-08-01 14:36 | ED.PDOC ---
GI ASSESSMENT HPI Comments HPI: 63y F who presents to the ED for chief complaint of abdominal pain - pt states she was at PCP office and presents to the ED due to referral for lower abdominal and pelvic pain for the past 2 days - pt states the pain is 7/10, non-radiating, with no associated exacerbating or relieving factors - pt states she had diarrhea episode today but otherwise denies any other symptoms Past Medical history: AFIB, HLD, DVT on eliquis, Past Surgical history: cholecystectomy Medications: unknown Allergies: codeine and zofran Social History: denies ETOH, endorses tobacco use, denies drug use [place]: LOEWR ABD PAIN, nausea, diarrhea HPI: Poor Historian. Past Medical History: Past Surgical History: REVIEW OF SYSTEMS: CONSTITUTIONAL: Denies acute: fever, diaphoresis, chills, HEAD: Denies acute: headache, photophobia Eyes: Denies acute: Double vision, vision loss, eye pain, eye discharge. EARS: Denies acute: tinnitus, hearing loss, ear discharge, ear pain, THROAT: Denies acute: sore throat, swelling, difficulty swallowing , pain with swallowing, change in voice. NECK: Denies acute: neck pain, neck swelling, stiff neck. HEART: Denies acute : chest pain, palpitations, LUNGS: Denies acute: SOB, wheezing, cough, hemoptysis ABDOMEN: Denies acute: Vomiting, , melena , hematemesis, hematochezia SKIN: Denies acute: rash, redness, lesions, itchiness. EXTREMITIES: Denies acute: calf pain, numbness, tingling, weakness, denies pain in extremity. Denies acute: Low back pain. Neuro: Denies acute: focal neurological deficit, motor or sensory focal neurological d eficit, tremors, seizure like activity, confusion, dizziness, change in mental status, loss of bowel or bladder function, cauda equina like symptoms. : Denies acute: dysuria, hematuria, flank pain, increase in urinary frequency. PSYCH: Denies acute: hallucination, suicidal ideation, homicidal ideation. FEMALE: Denies acute: abnormal vaginal bleeding, foul odor, unusual discharge. PHYSICAL EXAM: General: ---aeer-wt-ohcpublh-----acute distress, awake and alert. Head: normocephalic, atraumatic. Neck: supple, trachea is midline, no swelling. Throat: Normal phonation. Eyes:, no erythema, no purulent discharge, no proptosis, no icterus. Heart: regular rate, regular rhythm, no significant murmur appreciated. Lungs: no apparent respiratory distress, Able to speak in full sentences. No wheezing, no rhonchi, no crackles. No stridors Clear to auscultation bilaterally. Abdomen: Symmetrical bilateral and suprapubic lower abdominal tender to palpation, non distended, soft, no guarding, no rebound, + bowel sounds. Neuro: Awake, Alert, oriented to name, self, situation, follows commands GCS=15. Speech is normal. Skin: no petechia, no purpura, no cyanosis, non-pale, not jaundice. Lower extremities: --trace bilateral- Pitting edema no deformity, no focal swelling, no calf TTP. Makes eye contact. moves all four extremities. Face: no apparent facial droop. Ambulating in the ED independently. ED COURSE: Chief Complaint: Abdominal Pain Time Seen by MD: 14:35 Primary Care Provider: NONE Reviewed Notes: Medications, Allergies Allergies: Coded Allergies: Codeine (Verified Allergy, Severe, 10/25/22) Ondansetron (Verified Allergy, Severe, 10/25/22) Home Meds Active Scripts Midodrine Hcl (Midodrine Hcl) 10 Mg Tab, 10 MG PO TID, #90 TAB Prov:NIGHAT SMALL MD 09/03/22 Reported Medications Docusate Sodium (Colace) 100 Mg Cap, 100 MG PO, CAP 10/28/22 Famotidine (Famotidine) 20 Mg Tab, 20 MG PO BID for 30 Days, MG 10/28/22 Hydrocortisone Base (Cortef) 5 Mg Tab, 5 MG PO, MG 10/28/22 Trazodone HCl (Trazodone Hydrochloride) 50 Mg Tab, 50 MG PO DAILY, TAB 10/26/22 Promethazine HCl (Promethazine Hydrochlorid) 12.5 Mg Tab, 12.5 MG PO, TAB 10/26/22 Atorvastatin Calcium (Lipitor) 40 Mg Tab, 40 MG PO DAILY, TAB 10/26/22 Information Source: Patient Mode of Arrival: Ambulatory Past Medical History PAST MEDICAL HISTORY: AFIB Surgical History: BTL, Cholecystectomy 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 Was a procedure done?: No GI differential Dx Differential Diagnosis: Other (DDX include Diverticulitis, colitis, gastroenteritis, acute abdomen, SBO, enteritis, constipation, volvulus, appendicitis, Gallbladder disease, choledocolithiasis, ascending cholangitis, pancreatitis, intraAbdominal mass/neoplasm, hepatitis, UTI, pylonephritis, kidney stone, aneurysm, dissection, Inflammatory bowel disease, gastroparesis, ischemic bowel, ovarian torsion, ovarian cyst/mass, tubo-ovarian abscess, PID, STD.) X-Ray, Labs, Meds, VS Vital Signs Date Time Temp Pulse Resp B/P (MAP) Pulse Ox O2 Delivery O2 Flow Rate FiO2 08/01/24 19:59 98.1 60 18 111/86 (94) 96 98.1 08/01/24 16:02 60 16 114/61 (78) 98 08/01/24 14:44 121/80 08/01/24 14:33 81 20 98 Room Air* 0 21 08/01/24 14:32 63 18 95 Room Air 08/01/24 14:32 98.1 63 18 121/80 (94) 95 98.1 08/01/24 13:55 57 08/01/24 13:52 98.8 73 16 124/86 (99) 96 98.8 Lab Test 08/01/24 16:48 08/01/24 14:55 08/01/24 14:08 08/01/24 14:05 Range/Units Troponin I High Sensitivity < 3 L 3 L 3 L </=34 ng/L White Blood Count 6.4 4.4-10.8 10^3/uL Red Blood Count 4.84 4.0-5.20 10^6/uL Hemoglobin 15.3 12.2-16.2 g/dL Hematocrit 44.8 36.0-46.0 % Mean Corpuscular Volume 92.6 80.0-100.0 fL Mean Corpuscular Hemoglobin 31.6 28.0-32.0 pg Mean Corpuscular Hemoglobin Concent 34.1 32.0-36.0 g/dL Red Cell Distribution Width 13.7 11.8-14.3 % Platelet Count 261 140-450 10^3/uL Mean Platelet Volume 7.6 6.9-10.8 fL Neutrophils (%) (Auto) 65.9 37.0-80.0 % Lymphocytes (%) (Auto) 26.6 10.0-50.0 % Monocytes (%) (Auto) 6.3 0.0-12.0 % Eosinophils (%) (Auto) 0.9 0.0-7.0 % Basophils (%) (Auto) 0.3 0.0-2.0 % Neutrophils # (Auto) 4.2 1.6-8.6 10 ^3/uL Lymphocytes # (Auto) 1.7 0.4-5.4 10 ^3/uL Monocytes # (Auto) 0.4 0-1.3 10 ^3/uL Eosinophils # (Auto) 0.1 0-0.8 10 ^3/uL Basophils # (Auto) 0 0-0.2 10 ^3/uL Nucleated Red Blood Cells 0.1 % Sodium Level 141 136-145 mmol/L Potassium Level 4.1 3.5-5.1 mmol/L Chloride Level 108 H 98-107 mmol/L Carbon Dioxide Level 22 20-31 mmol/L Anion Gap 11 5-15 Blood Urea Nitrogen 19 9-23 mg/dL Creatinine 1.09 H 0.550-1.02 mg/dL Glomerular Filtration Rate Calc 58 >90 mL/min BUN/Creatinine Ratio 17.4 10.0-20.0 Serum Glucose 104 74-106 mg/dL Lactic Acid Level 1.5 0.4-2.0 mmol/L Calcium Level 9.8 8.7-10.4 mg/dL Total Bilirubin 0.5 0.2-1.0 mg/dL Aspartate Amino Transferase (AST) 15 13-40 U/L Alanine Aminotransferase (ALT) 11 7-40 U/L Alkaline Phosphatase 101 46-116 U/L Total Protein 7.5 5.7-8.2 g/dL Albumin 4.8 3.2-4.8 g/dL Lipase 32 12-53 U/L Urine Color Light-orange Yellow Urine Clarity Ex.turbid Clear Urine pH 5.0 5.0-9.0 Urine Specific [place] 1.031 1.001-1.035 Urine Protein Trace H Negative Urine Ketones Trace Negative Urine Blood Trace H Negative /uL Urine Nitrite Negative Negative Urine Bilirubin Negative Negative Urine Urobilinogen Normal Negative mg/dL Urine Leukocyte Esterase Negative Negative /uL Urine RBC 1 0 - 4 /hpf Urine Microscopic WBC 4 0-5 /HPF Urine Squamous Epithelial Cells Few <5 /hpf Urine Amorphous Crystals Few None Seen /hpf Urine Bacteria Few H None Seen /hpf Urine Mucus Moderate None Seen Urine Glucose Normal Normal mg/dL [place] [address] Ph: [phone] DIAGNOSTIC IMAGING Diagnostic Imaging Report : [id number] Signed PATIENT: ISAI GARIBAY ACCT: [id number] UNIT: [id number] : 1960 LOC: ER ROOM / BED: / AGE / SEX: 63 / F ADM STATUS: REG ER SERVICE 1348 ORDERING PHYSICIAN: STEVEN KING DO PROCEDURE(s): ABPL - CT AB PEL WO CON-NO ORAL OR IV REASON: lower abd pain Nausea/diarrhea ORDER NUMBER(s): [id number], ACCESSION NUMBER(s): [id number] CT ABDOMEN AND PELVIS WITHOUT CONTRAST CLINICAL HISTORY: lower abd pain Nausea/diarrhea TECHNIQUE: Multiple contiguous axial images of the abdomen and pelvis without intravenous contrast. The images were reformatted degenerate coronal and sag ittal reconstructions. All CT scans at this medical facility are performed using dose modulation techniques as appropriate to a performed exam including the following:Automated exposure control was utilized; adjustment of the MA and/or KV according to pat ient size; and use of iterative reconstruction technique. Radiation Dose Information: CT Dose: CTDI volume is 20 mGy. Dose-length product is 11 16 mGy*cm Comparison: None FINDINGS: Evaluation of the abdomen and pelvis is limited without intravenous contrast. The gallbladder is surgically absent. The liver, pancreas, kidneys, adrenal glands, and spleen appear within normal limits. There is no gross evidence of abdominal lymphadenopathy. There is no free fluid or free air. The stomach grossly appears unremarkable. The small and large bowel loops demonstrate normal caliber and distribution. A normal appearing appendix is seen in the right lower quadrant abdomen. There is sigmoid diverticulosis without evidence of acute diverticulitis. The abdominal aorta and IVC appear within normal limits. The bladder appears unremarkable for the degree of distention. Pelvic organ gr ossly appears within normal limits. There is no gross evidence of a pelvic mass. There is no free fluid collection. There is mild scarring versus atelectasis in the visualized lower lungs. There is no acute osseous abnormality. There are degenerative changes in the lower lumbar spine. IMPRESSION: 1. There is no acute process in the abdomen and pelvis. 2. Sigmoid diverticulosis without evidence of acute diverticulitis. HS:Y ATED BY: TIMOTEO JACOBS MD DICTATED DATE/TIME: 08/01/241434 SIGNED BY: TIMOTEO JACOBS MD SIGNED DATE/TIME: 08/01/241434 CC: [place] [address] Ph: [phone] DIAGNOSTIC IMAGING Diagnostic Imaging Report : [id number] Signed PATIENT: ISAI GARIBAY ACCT: [id number] UNIT: [id number] : 1960 LOC: ER ROOM / BED: / AGE / SEX: 63 / F ADM STATUS: REG ER SERVICE 1348 ORDERING PHYSICIAN: STEVEN KING DO PROCEDURE(s): CXRP - CHEST PORTABLE REASON: lower abd pain Nausea/diarrhea ORDER NUMBER(s): [id number], ACCESSION NUMBER(s): [id number] CHEST RADIOGRAPH Indication: lower abd pain Nausea/diarrhea Technique: Single frontal view of the chest was obtained COMPARISON: XY CHEST PORTABLE on DOS: 11/02/22, XY CHEST PORTABLE on DOS: 10/29, XY CHEST PORTABLE on DOS: 10/28/22, XY CHEST PORTABLE on DOS: 10/27/22, XY CHEST PORTABLE on DOS: 10/26/22 FINDINGS: Lines and Tubes: None Lungs: Clear Pleura: No effusion. No pneumothorax. Cardiomediastinal contours: Unremarkable Bones: Unremarkable IMPRESSION: No acute disease. ATED BY: BLAIR HINOJOSA MD DICTATED DATE/TIME: 08/01/241438 SIGNED BY: BLAIR HINOJOSA MD SIGNED DATE/TIME: 08/01/241438 CC: [facility] [id number] [place] [address] Ph: [phone] DIAGNOSTIC IMAGING Diagnostic Imaging Report : [id number] Signed PATIENT: ISAI GARIBAY ACCT: [id number] UNIT: [id number] : 1960 LOC: ER ROOM / BED: / AGE / SEX: 63 / F ADM STATUS: REG ER SERVICE 1539 ORDERING PHYSICIAN: STEVEN KING DO PROCEDURE(s): PELUS - PELVIC REASON: lower abd pain ORDER NUMBER(s): [id number], ACCESSION NUMBER(s): [id number] EXAM: US PELVIC HISTORY: lower abd pain COMPARISON: None TECHNIQUE: Transabdominal and transvaginal imaging was utilized. Grayscale and color doppler evaluation. Images were stored in the patient's permanent medical record. FINDINGS: UTERUS: 6.8 x 3.7 x 3.4 cm. Endometrial stripe: 0.6 cm. RIGHT OVARY: Not well-visualized LEFT OVARY: Not well-visualized OTHER: No free fluid is identified. IMPRESSION: 1. Unremarkable pelvic ultrasound allowing for limitation of nonvisualization of the ovaries. 2. Slight endometrial stripe thickening above normal limits despite the postmenopausal state. Endometrial carcinoma versus hyperplasia versus less likely polyp. ATED BY: YUVAL LYNN MD DICTATED DATE/TIME: 08/01/241752 SIGNED BY: YUVAL LYNN MD SIGNED DATE/TIME: 08/01/241752 CC: Time of 1ST Reevaluation: 17:11 (As of this minute. Pelvic ultrasound report is still pending) Reevaluation 1ST: Unchanged Time of 2ND Reevaluation: 19:18 (The case was discussed with the OB Gyne doctor on-call (HPI, physical exam, labs and diagnostic tests that were available at the time of disposition, ED course, treatment plan) on the phone. She recommends outpatient follow up for endometrial biopsy. Dr. Schwartz. ) Reevaluation 2ND: Improved Patient Education/Counseling: Diagnosis, Treatment Family Education/Counseling: No Family Present Comments Additional instructions: You MUST follow-up with your primary care/family doctor in 1 to 2 days. If you are unable to see your primary care/family doctor, please return to our emergency room for re-assessment and re-evaluation in 1 to 2 days. Return to the emergency room here in our facility or to the nearest ER JE if your symptoms change or worsen. CONSULTATIONS: you MUST Follow-up for consultation as soon as possible with: Dr. GRETCHEN Kaminski doctor and gastroenterology in 1-2 days. Please call for appointment You MUST call the consultants office yourself to make an appointment. You may need to arrange that through your insurance and/or your primary/family doctor. If you are unable to see the risk consultant in 1 to 2 days, you must return to our emergency room (or any other ER of your choice) for re-assessment and re- evaluation. Adequate fluid hydration. Below is a copy of your radiological report for follow up: [place] [address] Ph: [phone] DIAGNOSTIC IMAGING Diagnostic Imaging Report : [id number] Signed PATIENT: ISAI GARIBAY ACCT: [id number] UNIT: [id number] : 1960 LOC: ER ROOM / BED: / AGE / SEX: 63 / F ADM STATUS: REG ER SERVICE 1348 ORDERING PHYSICIAN: STEVEN KING DO PROCEDURE(s): ABPL - CT AB PEL WO CON-NO ORAL OR IV REASON: lower abd pain Nausea/diarrhea ORDER NUMBER(s): [id number], ACCESSION NUMBER(s): [id number] CT ABDOMEN AND PELVIS WITHOUT CONTRAST CLINICAL HISTORY: lower abd pain Nausea/diarrhea TECHNIQUE: Multiple contiguous axial images of the abdomen and pelvis without intravenous contrast. The images were reformatted degenerate coronal and sagittal reconstructions. All CT scans at this medical facility are performed using dose modulation techniques as appropriate to a performed exam including the following:Automated exposure control was utilized; adjustment of the MA and/or KV according to patient size; and use of iterative reconstruction technique. Radiation Dose Information: CT Dose: CTDI volume is 20 mGy. Dose-length product is 11 16 mGy*cm Comparison: None FINDINGS: Evaluation of the abdomen and pelvis is limited without intravenous contrast. The gallbladder is surgically absent. The liver, pancreas, kidneys, adrenal glands, and spleen appear within normal limits. There is no gross evidence of abdominal lymphadenopathy. There is no free fluid or free air. The stomach grossly appears unremarkable. The small and large bowel loops demonstrate normal caliber and distribution. A normal appearing appendix is seen in the right lower quadrant abdomen. There is sigmoid diverticulosis without evidence of acute diverticulitis. The abdominal aorta and IVC appear within normal limits. The bladder appears unremarkable for the degree of distention. Pelvic organ grossly appears within normal limits. There is no gross evidence of a pelvic mass. There is no free fluid collection. There is mild scarring versus atelectasis in the visualized lower lungs. There is no acute osseous abnormality. There are degenerative changes in the lower lumbar spine. IMPRESSION: 1. There is no acute process in the abdomen and pelvis. 2. Sigmoid diverticulosis without evidence of acute diverticulitis. HS:Y ATED BY: TIMOTEO JACOBS MD DICTATED DATE/TIME: 08/01/241434 SIGNED BY: TIMOTEO JACOBS MD SIGNED DATE/TIME: 08/01/24 143 CC: [place] [address] Ph: [phone] DIAGNOSTIC IMAGING Diagnostic Imaging Report : [id number] Signed PATIENT: ISAI GARIBAY ACCT: [id number] UNIT: [id number] : 1960 LOC: ER ROOM / BED: / AGE / SEX: 63 / F ADM STATUS: REG ER SERVICE 1539 ORDERING PHYSICIAN: STEVEN KING DO PROCEDURE(s): PELUS - PELVIC REASON: lower abd pain ORDER NUMBER(s): [id number], ACCESSION NUMBER(s): [id number] EXAM: US PELVIC HISTORY: lower abd pain COMPARISON: None TECHNIQUE: Transabdominal and transvaginal imaging was utilized. Grayscale and color doppler evaluation. Images were stored in the patient's permanent medical record. FINDINGS: UTERUS: 6.8 x 3.7 x 3.4 cm. Endometrial stripe: 0.6 cm. RIGHT OVARY: Not well-visualized LEFT OVARY: Not well-visualized OTHER: No free fluid is identified. IMPRESSION: 1. Unremarkable pelvic ultrasound allowing for limitation of nonvisualization of the ovaries. 2. Slight endometrial stripe thickening above normal limits despite the postmenopausal state. Endometrial carcinoma versus hyperplasia versus less likely polyp. ATED BY: YUVAL LYNN MD DICTATED DATE/TIME: 08/01/241752 SIGNED BY: YUVAL LYNN MD SIGNED DATE/TIME: 08/01/241752 CC: Departure 1 Departure Time of Disposition: 19:21 Impression: Primary Impression: Abdominal pain Disposition: HOME / SELF CARE / HOMELESS Condition: Stable Additional Instructions: Additional instructions: You MUST follow-up with your primary care/family doctor in 1 to 2 days. If you are unable to see your primary care/family doctor, please return to our emergency room for re-assessment and re-evaluation in 1 to 2 days. Return to the emergency room here in our facility or to the nearest ER JE if your symptoms change or worsen. CONSULTATIONS: you MUST Follow-up for consultation as soon as possible with: Dr. GRETCHEN Kaminski doctor and gastroenterology in 1-2 days. Please call for appointment. You MUST call the consultants office yourself to make an appointment. You may need to arrange that through your insurance and/or your primary/family doctor. If you are unable to see the risk consultant in 1 to 2 days, you must return to our emergency room (or any other ER of your choice) for re-assessment and re- evaluation. Adequate fluid hydration. Below is a copy of your radiological report for follow up: [place] [address] Ph: [phone] DIAGNOSTIC IMAGING Diagnostic Imaging Report : [id number] Signed PATIENT: ISAI GARIBAY ACCT: [id number] UNIT: [id number] : 1960 LOC: ER ROOM / BED: / AGE / SEX: 63 / F ADM STATUS: REG ER SERVICE 1539 ORDERING PHYSICIAN: STEVEN KING DO PROCEDURE(s): PELUS - PELVIC REASON: lower abd pain ORDER NUMBER(s): [id number], ACCESSION NUMBER(s): [id number] EXAM: US PELVIC HISTORY: lower abd pain COMPARISON: None TECHNIQUE: Transabdominal and transvaginal imaging was utilized. Grayscale and color doppler evaluation. Images were stored in the patient's permanent medical record. FINDINGS: UTERUS: 6.8 x 3.7 x 3.4 cm. Endometrial stripe: 0.6 cm. RIGHT OVARY: Not well-visualized LEFT OVARY: Not well-visualized OTHER: No free fluid is identified. IMPRESSION: 1. Unremarkable pelvic ultrasound allowing for limitation of nonvisualization of the ovaries. 2. Slight endometrial stripe thickening above normal limits despite the postmenopausal state. Endometrial carcinoma versus hyperplasia versus less likely polyp. ATED BY: YUVAL LYNN MD DICTATED DATE/TIME: 08/01/241752 SIGNED BY: YUVAL LYNN MD SIGNED DATE/TIME: 08/01/241752 CC: [place] [address] Ph: [phone] DIAGNOSTIC IMAGING Diagnostic Imaging Report : [id number] Signed PATIENT: ISAI GARIBAY ACCT: [id number] UNIT: [id number] : 1960 LOC: ER ROOM / BED: / AGE / SEX: 63 / F ADM STATUS: REG ER SERVICE 1348 ORDERING PHYSICIAN: STEVEN KING DO PROCEDURE(s): ABPL - CT AB PEL WO CON-NO ORAL OR IV REASON: lower abd pain Nausea/diarrhea ORDER NUMBER(s): [id number], ACCESSION NUMBER(s): [id number] CT ABDOMEN AND PELVIS WITHOUT CONTRAST CLINICAL HISTORY: lower abd pain Nausea/diarrhea TECHNIQUE: Multiple contiguous axial images of the abdomen and pelvis without intravenous contrast. The images were reformatted degenerate coronal and sagittal reconstructions. All CT scans at this medical facility are performed using dose modulation techniques as appropriate to a performed exam including the following:Automated exposure control was utilized; adjustment of the MA and/or KV according to patient size; and use of iterative reconstruction technique. Radiation Dose Information: CT Dose: CTDI volume is 20 mGy. Dose-length product is 11 16 mGy*cm Comparison: None FINDINGS: Evaluation of the abdomen and pelvis is limited without intravenous contrast. The gallbladder is surgically absent. The liver, pancreas, kidneys, adrenal glands, and spleen appear within normal limits. There is no gross evidence of abdominal lymphadenopathy. There is no free fluid or free air. The stomach grossly appears unremarkable. The small and large bowel loops demonstrate normal caliber and distribution. A normal appearing appendix is seen in the right lower quadrant abdomen. There is sigmoid diverticulosis without evidence of acute diverticulitis. The abdominal aorta and IVC appear within normal limits. The bladder appears unremarkable for the degree of distention. Pelvic organ grossly appears within normal limits. There is no gross evidence of a pelvic mass. There is no free fluid collection. There is mild scarring versus atelectasis in the visualized lower lungs. There is no acute osseous abnormality. There are degenerative changes in the lower lumbar spine. IMPRESSION: 1. There is no acute process in the abdomen and pelvis. 2. Sigmoid diverticulosis without evidence of acute diverticulitis. HS:Y ATED BY: TIMOTEO JACOBS MD DICTATED DATE/TIME: 08/01/24 1435 SIGNED BY: TIMOTEO JACOBS MD SIGNED DATE/TIME: 08/01/24 1435 CC: Discharged With: Self Critical Care Note Critical Care Time?: No I personally scribed for STEVEN KING DO ([email or web address]) on 08/01/24 at 14:36. Electronically submitted by Johanna Davis ([email or web address]). I personally scribed for STEVEN KING DO ([email or web address]) on 08/01/24 at 19:23. Electronically submitted by Johanna GREGORIO). STEVEN KING DO August 01, 2024 14:36
[2024-08-01] MEDS: SODIUM CHLORIDE 0.9% 1,000 ML IV ONE (14:39)
[2024-08-01 14:40] LABS: Alanine Aminotransferase 11 U/L (7-40); Albumin 4.8 g/dL (3.2-4.8); Alkaline Phosphatase 101 U/L (46-116); Anion Gap 11 (5-15); Aspartate Aminotransferase 15 U/L (13-40); BUN/Creatinine Ratio 17.4 (10.0-20.0); Bilirubin, Total 0.5 mg/dL (0.2-1.0); Blood Urea Nitrogen 19 mg/dL (9-23); Calcium 9.8 mg/dL (8.7-10.4); Carbon Dioxide 22 mmol/L (20-31); Chloride 108 mmol/L (98-107); Glucose 104 mg/dL (74-106); Lipase 32 U/L (12-53); Potassium 4.1 mmol/L (3.5-5.1); Sodium 141 mmol/L (136-145); Total Protein 7.5 g/dL (5.7-8.2)
--- NOTE | 2024-08-01 14:41 | DVH ---
CHEST RADIOGRAPH Indication: lower abd pain Nausea/diarrhea Technique: Single frontal view of the chest was obtained COMPARISON: XY CHEST PORTABLE on DOS: 11/02/22, XY CHEST PORTABLE on DOS: 10/29/22, XY CHEST PORTABLE o n DOS: 10/28/22, XY CHEST PORTABLE on DOS: 10/27/22, XY CHEST PORTABLE on DOS: 10/26/22 FINDINGS: Lines and Tubes: None Lungs: Clear Pleura: No effusion. No pneumothorax. Cardiomediastinal contours: Unremarkable Bones: Unremarkable IMPRESSION: No acute disease.
[2024-08-01] MEDS: fentaNYL CITRATE 100 MCG/2 ML VL IV ONE (14:44)
--- NOTE | 2024-08-01 17:56 | DVH ---
EXAM: US PELVIC HISTORY: lower abd pain COMPARISON: None TECHNIQUE: Transabdominal and transvaginal imaging was utilized. Grayscale and color doppler evaluati on. Images were stored in the patient's permanent medical record. FINDINGS: UTERUS: 6.8 x 3.7 x 3.4 cm. Endometrial stripe: 0.6 cm. RIGHT OVARY: Not well-visualized LEFT OVARY: Not well-visualized OTHER: No free fluid is identified. IMPRESSION: 1. Unremarkable pelvic ultrasound allowing for limitation of nonvisualization of the ovaries. 2. Slight endometrial stripe thickening above normal limits despite the postmenopausal state. Endomet rial carcinoma versus hyperplasia versus less likely polyp.
[2024-08-01 19:59] VITALS: BP 111/86; PULSE 60; RESP 18; TEMP 98.1; O2SAT 96
--- NOTE | 2024-08-02 06:14 | ECG ---
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
== END 2024-08-01 20:01 | disposition home or self-care (01) ==
LOC: ER 13:20
DX: R10.30 Lower abdominal pain, unspecified (principal); R10.2 Pelvic and perineal pain; E78.5 Hyperlipidemia, unspecified; I48.91 Unspecified atrial fibrillation; Z79.899 Other long term (current) drug therapy; Z86.718 Personal history of other venous thrombosis and embolism; Z90.49 Acquired absence of other specified parts of digestive tract; Z88.5 Allergy status to narcotic agent; Z88.8 Allergy status to other drugs, medicaments and biological substances
CPT/HCPCS: 36415; 71045; 74176; 76856; 80053; 81001; 83605; 83690; 84484; 85025; 93005; 96361; 96374; 99285; J3010; J7030